=== PATIENT | male | born 1980 | race Two or more races ===

== ENCOUNTER 2025-03-22 13:27 | Emergency (ER) | payer MEDICAID, OTHER ==
[~2025-03-22] VITALS: Ht 185.4 cm; Wt 78.5 kg
[2025-03-22 13:35] VITALS: TEMP 98.3
[2025-03-22] MEDS ORDERED: ASPIRIN EC 325 MG TABLET.DR PO ONE (14:09)
[2025-03-22] MEDS: ASPIRIN EC 325 MG TABLET.DR PO ONE (14:11)
[2025-03-22 14:15] LABS: PLATELET COUNT (AUTO) 238 K/uL (150-450); RED BLOOD CELL COUNT(AUTO) 4.57 MIL/uL (4.5-6.0); RED CELL DISTRIBUTION WIDTH 14.2 % (11.5-15.0); WHITE BLOOD COUNT (AUTO) 8.3 K/uL (4.3-11.0)
[2025-03-22 14:24] LABS: CALCIUM, SERUM 8.7 mg/dL (8.5-10.1); CREATININE 1.2 mg/dL (0.6-1.3); SODIUM SERUM 142 mmol/L (136-145); UREA NITROGEN, BLOOD 11 mg/dL (7-18)
[2025-03-22 14:38] LABS: NT-PRO BNP 33 pg/mL (0-125)
[2025-03-22] MEDS ORDERED: MORPHINE SULFATE INJ 2 MG/ML DISP.SYRIN IV ONE (15:30)
[2025-03-22] MEDS ORDERED: ONDANSETRON HCL/PF 4 MG/2 ML VIAL IVP ONE (15:30)
[2025-03-22] MEDS: MORPHINE SULFATE INJ 2 MG/ML DISP.SYRIN IM ONE (15:41)
[2025-03-22] MEDS: ONDANSETRON 4 MG TAB.RAPDIS SL ONE (15:41)
[2025-03-22 16:06] VITALS: BP 130/85; O2SAT 100
== END 2025-03-22 16:00 | disposition left against medical advice (07) ==
LOC: ER 13:40
DX: R07.89 Other chest pain (principal); R03.0 Elevated blood-pressure reading, without diagnosis of hypertension; F17.210 Nicotine dependence, cigarettes, uncomplicated; F12.90 Cannabis use, unspecified, uncomplicated; R06.02 Shortness of breath
CPT/HCPCS: 36415; 71045-TC; 80048-TC; 83880; 84484-TC; 85025-TC